=== PATIENT | male | born 1970 | race Caucasian/White ===

== ENCOUNTER → 2020-06-21 09:31 | Outpatient (CLI) | payer MEDICAID, SELFPAY ==
--- NOTE | 2020-06-21 09:37 | MR_ITS ---
PROCEDURE: MR HEAD/BRAIN WO CON CLINICAL INDICATION: stroke like symptoms, encephalopathy Episodes where loses train of thought, stutters, and cannot form sentences and passes out. Headache, dizziness, and blurred vision during episodes. [id number]. Memory loss. COMPARISON: No exams were available for comparison TECHNIQUE: Routine multiplanar multi echo sequences are performed without gadolinium enhancement. FINDINGS: No midline shift, mass effect, intracranial hemorrhage acute infarction, or hydrocephalus is evident. The cerebellopontine angles, cerebellum, and brainstem have an unremarkable appearance. There are a few scattered periventricular and subcortical T2 white matter hyperintensities noted which are nonspecific. There is suggestion of mild cortical volume loss in the frontal and parietal lobes. There is prominence of the subdural space in these regions. The pituitary, optic chiasm, corpus callosum, and craniocervical junction have an unremarkable appearance. No mastoid effusion or sinus air-fluid level. IMPRESSION: 1. No acute intracranial findings. 2. Mild cortical volume loss of the parietal and frontal lobes 3. Scattered nonspecific periventricular and subcortical T2 white matter hyperintensities possibly due to mild ischemic gliotic change from small vessel disease. Migraine headache would be included in the differential diagnosis. Demyelinating process felt to be less likely due to the imaging characteristics but not totally excluded Dictated b Chaparro Kearney MD 06/22/2020 11:23 Chaparro Kearney MD in [place] 06/22/2020 11:23
== END ==
PROVIDERS: PCP Family Medicine; Visit Provider Specialist
DX: G93.40 Encephalopathy, unspecified (principal); R29.90 Unspecified symptoms and signs involving the nervous system
CPT/HCPCS: 70551

== ENCOUNTER → 2020-08-02 18:12 | Outpatient (CLI) | payer MEDICAID, SELFPAY ==
[2020-08-02 18:31] LABS: Basophils # 0.1 K/mm3 (0-0.2); Eosinophils # 0.1 K/mm3 (0.0-0.4); Eosinophils % 1.5 % (0.1-12.0); Hematocrit 51.6 % (42.0-52.0); Hemoglobin 17.2 g/dL (14.1-18.0); Lymphocytes # 2.8 K/mm3 (0.7-4.5); Lymphocytes % 31.9 % (10-50); Mean Corpuscular HGB Conc 33.4 g/dL (31.8-35.4); Mean Corpuscular Hemoglobin 31.9 pg (27.0-31.2); Mean Corpuscular Volume 95.6 fl (80-94); Mean Platelet Volume 9.2 fl (7.4-10.4); Monocytes # 0.7 K/mm3 (0.1-1.0); Neutrophils # 5.1 K/mm3 (1.8-7.8); Neutrophils % 57.7 % (37.0-80.0); Platelet Count 180 K/mm3 (142-424); Red Cell Distribution Width 13.1 % (11.5-17.5); White Blood Count 8.8 K/mm3 (4.8-10.8)
[2020-08-02 18:43] LABS: Chloride 105 mmol/L (98-107); Potassium 3.9 mmoL/L (3.5-5.1); Sodium 140 mmol/L (136-145)
[2020-08-02 18:46] LABS: Alanine Aminotransferase 45 U/L (12-78); Albumin Level 4.1 g/dl (3.5-5.0); Albumin/Globulin Ratio 1.3 (1.1-1.8); Alkaline Phosphatase 126 U/L (38-126); Anion Gap 12.9 mEq/L (5-15); Aspartate Amino Transferase 37 U/L (17-59); Bilirubin,Total 0.4 mg/dl (0.2-1.3); Blood Urea Nitrogen 8 mg/dl (9-20); Carbon Dioxide 26 mmol/L (22.0-30.0); Estimated Glomerular Filt Rate 103 ml/min (>60); GFR (African American) 125 ML/MIN (>60); Globulin 3.2 g/dL (1.3-3.2); Total Protein,Serum 7.3 g/dl (6.3-8.2)
[2020-08-02 18:47] LABS: Calcium 9.5 mg/dl (8.4-10.2); Glucose 196 mg/dl (74-100)
[2020-08-02 18:59] LABS: Coronavirus 19 IgG Antibody Negative (Negative); Coronavirus 19 IgM Antibody Negative (Negative)
[2020-08-03 00:11] LABS: Vitamin B12 351 pg/mL (239-931)
== END ==
PROVIDERS: Visit Provider Specialist
DX: G47.33 Obstructive sleep apnea (adult) (pediatric) (principal); Z01.818 Encounter for other preprocedural examination; E11.9 Type 2 diabetes mellitus without complications; R26.89 Other abnormalities of gait and mobility; R29.90 Unspecified symptoms and signs involving the nervous system; Z79.84 Long term (current) use of oral hypoglycemic drugs
CPT/HCPCS: 36415; 80053; 82607; 85025; 86328

== ENCOUNTER → 2020-08-02 20:27 | Outpatient (CLI) | payer MEDICAID, SELFPAY | PROVIDERS: PCP Family Medicine; Visit Provider Specialist | DX: Z01.89 Encounter for other specified special examinations (principal); G47.33 Obstructive sleep apnea (adult) (pediatric) | CPT/HCPCS: 95810 ==

== ENCOUNTER → 2021-01-04 16:45 | Outpatient (CLI) | payer MEDICAID, SELFPAY ==
[2021-01-04 18:38] LABS: Basophils # 0.1 K/mm3 (0-0.2); Basophils % 0.9 % (0.1-2.0); Eosinophils # 0.2 K/mm3 (0.0-0.4); Eosinophils % 1.6 % (0.1-12.0); Hematocrit 51.5 % (42.0-52.0); Hemoglobin 16.2 g/dL (14.1-18.0); Lymphocytes # 3.4 K/mm3 (0.7-4.5); Lymphocytes % 35.1 % (10-50); Mean Corpuscular HGB Conc 31.6 g/dL (31.8-35.4); Mean Corpuscular Hemoglobin 30.5 pg (27.0-31.2); Mean Corpuscular Volume 96.6 fl (80-94); Mean Platelet Volume 8.6 fl (7.4-10.4); Monocytes # 0.9 K/mm3 (0.1-1.0); Monocytes % 8.9 % (1.7-9.3); Neutrophils # 5.1 K/mm3 (1.8-7.8); Neutrophils % 53.5 % (37.0-80.0); Platelet Count 193 K/mm3 (142-424); Red Blood Count 5.33 M/mm3 (4.60-6.20); Red Cell Distribution Width 13.5 % (11.5-17.5); White Blood Count 9.6 K/mm3 (4.8-10.8)
[2021-01-04 18:56] LABS: Alanine Aminotransferase 28 U/L (12-78); Albumin Level 4.4 g/dl (3.5-5.0); Albumin/Globulin Ratio 1.3 (1.1-1.8); Alkaline Phosphatase 132 U/L (38-126); Anion Gap 11.5 mEq/L (5-15); Aspartate Amino Transferase 33 U/L (17-59); Bilirubin,Total 0.4 mg/dl (0.2-1.3); Blood Urea Nitrogen 10 mg/dl (9-20); Calcium 9.8 mg/dl (8.4-10.2); Carbon Dioxide 31 mmol/L (22.0-30.0); Chloride 103 mmol/L (98-107); Estimated Glomerular Filt Rate 90 ml/min (>60); GFR (African American) 109 ML/MIN (>60); Globulin 3.4 g/dL (1.3-3.2); Glucose 91 mg/dl (74-100); Potassium 4.5 mmoL/L (3.5-5.1); Sodium 141 mmol/L (136-145); Total Protein,Serum 7.8 g/dl (6.3-8.2)
[2021-01-04 19:02] LABS: Valproic Acid, (Depakene) < 10.0 ug/ml (50-100)
== END ==
PROVIDERS: Visit Provider Nurse Practitioner Family
DX: R51.9 Headache, unspecified (principal); R41.3 Other amnesia; G93.40 Encephalopathy, unspecified; G89.29 Other chronic pain
CPT/HCPCS: 36415; 80053; 80164; 85025